=== PATIENT | male | born 1940 | race Caucasian/White ===

== ENCOUNTER 2017-02-08 16:41 | Emergency (ER) | payer OTHER, MEDICARE ==
[~2017-02-08] VITALS: Ht 157.4 cm; Wt 75.3 kg
[~2017-02-08 16:41] MED LIST: LISINOPRIL5 MG PO; METFOMIN HYDRO850 MG PO; PERCOCET 500 MG1 TAB PO; VITAMIN B1250 MCG PO
[2017-02-08 17:17] LABS: BASO % 0.6 % (0.0-1.0); EOS # 0.5 10*3/uL (0.0-0.4); EOS % 6.7 % (1.0-4.0); HEMATOCRIT 45.8 % (42.0-52.0); HEMOGLOBIN 16.1 g/dl (14.0-18.0); LYMPH # 2.1 10*3/uL (1.3-4.4); LYMPH % 31.1 % (27.0-41.0); MEAN CELL VOLUME 90.3 fl (80.0-94.0); MEAN CORPUSCULAR HGB 31.8 pg (27.0-31.0); MEAN CORPUSCULAR HGB CONC 35.2 g/dl (33.0-37.0); MEAN PLATELET VOLUME 10.8 fl (9.6-12.3); MONO # 0.6 10*3/uL (0.1-1.0); MONO % 9.2 % (3.0-9.0); NEUT # 3.6 10*3/uL (2.3-7.9); NEUT % 52.3 % (47.0-73.0); PLATELET COUNT AUTOMATED 203 10*3/uL (130-400); RED BLOOD COUNT 5.07 10*6/uL (4.50-5.90); RED CELL DISTRI WIDTH 12.6 % (0-14.5); WHITE BLOOD COUNT 6.9 10*3/uL (4.8-10.8)
[2017-02-08 17:26] LABS: PROTHROMBIN TIME 10.2 SECONDS (9.0-12.4)
[2017-02-08 17:34] LABS: ALBUMIN 4.2 gm/dl (3.1-4.5); ALKALINE PHOSPHATASE 69 U/L (45-117); BILIRUBIN, TOTAL 0.2 mg/dl (0.2-1.0); BUN 23 mg/dl (7-24); CARBON DIOXIDE 31 mmol/L (21-32); CHLORIDE 103 mmol/L (98-107); EST GLOM FILT AFRICAN AMERICAN > 60 ml/min; GLUCOSE 121 mg/dL (65-99); POTASSIUM 4.4 mmol/L (3.5-5.1); SGOT/AST 16 IU/L (3-35); SGPT/ALT 42 U/L (12-78); SODIUM 139 mmol/L (136-145); TOTAL PROTEIN 7.6 gm/dL (6.4-8.2)
[2017-02-08 17:37] LABS: TROPONIN I < 0.015 ng/ml (<0.045)
== END 2017-02-08 19:07 | disposition home or self-care (01) ==
LOC: ED 16:41
PROVIDERS: Registered Nurse
DX: R07.89 Other chest pain (principal); Z90.49 Acquired absence of other specified parts of digestive tract

== ENCOUNTER 2017-04-16 12:57 | Inpatient (IN) | payer OTHER, MEDICARE ==
[~2017-04-16] VITALS: Ht 157.4 cm; Wt 74.8 kg
[2017-04-16] VITALS (15 sets, daily range): BP systolic 151–200; BP diastolic 74–107
--- NOTE | ~2017-04-16 | PR ---
[place], [place] PROGRESS NOTE NAME: DAVE BUTT UNIT #: [id number] ROOM: 403 DOCTOR: JAMIE RIBEIRO MD BIRTHDATE: [birth year] DOS: REQUESTING PHYSICIAN: Dr. Weston. SUBJECTIVE: The patient presented with complaint of chest pain. Overnight did not have any significant recurrence of his chest complaints. He has been pain free. OBJECTIVE: VITAL SIGNS: Blood pressure 100/60, heart rate 80, presenting blood pressure 128/68, heart rate 74, respiratory rate of 14. HEENT: Extraocular muscles intact. Pupils equal, round and reactive to light. Conjunctivae, no pallor. Throat, no petechiae. NECK: Good upstroke. No bruit. HEART: S1, S2 with no rub. LUNGS: Clear to auscultation. LOWER EXTREMITIES: Mild ankle edema. ASSESSMENT AND PLAN: Chest pain, cardiac enzymes have been negative. The patient is scheduled today for Lexiscan stress test. Should the stress test be negative, the patient can be discharged home with followup with Dr. Moreland as an outpatient within 4-6 weeks. Any recurrence of chest pain, the patient was asked to come back immediately to the hospital or call 911. Cardiac risk modification will be deferred to Dr. Weston. Enteric-coated aspirin 81 mg is recommended. JAMIE RIBEIRO MD CM:PNTRANS [id number] JAMIE RIBEIRO MD 04/19/17 2013 interface
--- NOTE | ~2017-04-16 | ST ---
[place], [place] EXERCISE STRESS TEST REPORT [id number] UN[facility] #: [id number] ROOM: 403 DOCTOR: JAMIE RIBEIRO MD BIRTHDATE: [birth year] DOS: INDICATION: Chest pain. PROCEDURE: The patient was brought into the stress lab. The procedure was explained with risks, benefits and alternatives. Lexiscan was injected. The patient tolerated the injection well. ELECTROCARDIOGRAM INTERPRETATION: The resting electrocardiogram showed normal sinus rhythm, heart rate of 74, poor R-wave progression, mild nonspecific ST-T changes. During the infusion, there was no evidence of any significant ST or T-wave changes suggestive of myocardial ischemia. No arrhythmias were noted. BLOOD PRESSURE RESPONSE: Resting blood pressure 128/68 with ending blood pressure 102/58. SUMMARY: 1. Adequate Lexiscan stress test. 2. Negative Lexiscan stress test for stress-induced myocardial ischemia. 3. No arrhythmias were noted. 4. Nuclear images will be reported separately. JAMIE RIBEIRO MD CM:STRESS:EXERCISE STRESS TEST REPORT [id number] JAMIE RIBEIRO MD
[2017-04-16 13:29] LABS: PROTHROMBIN TIME 10.3 SECONDS (9.0-12.4)
[2017-04-16 13:32] LABS: BASO % 0.5 % (0.0-1.0); EOS # 0.5 10*3/uL (0.0-0.4); EOS % 6.3 % (1.0-4.0); HEMATOCRIT 44.4 % (42.0-52.0); HEMOGLOBIN 16.2 g/dl (14.0-18.0); LYMPH # 2.3 10*3/uL (1.3-4.4); LYMPH % 30.6 % (27.0-41.0); MEAN CELL VOLUME 88.4 fl (80.0-94.0); MEAN CORPUSCULAR HGB 32.3 pg (27.0-31.0); MEAN CORPUSCULAR HGB CONC 36.5 g/dl (33.0-37.0); MEAN PLATELET VOLUME 10.3 fl (9.6-12.3); MONO # 0.6 10*3/uL (0.1-1.0); MONO % 8.4 % (3.0-9.0); NEUT # 4.1 10*3/uL (2.3-7.9); NEUT % 54.1 % (47.0-73.0); PLATELET COUNT AUTOMATED 206 10*3/uL (130-400); RED BLOOD COUNT 5.02 10*6/uL (4.50-5.90); RED CELL DISTRI WIDTH 12.6 % (0-14.5); WHITE BLOOD COUNT 7.5 10*3/uL (4.8-10.8)
[2017-04-16 14:00] LABS: ALBUMIN 3.9 gm/dl (3.1-4.5); ALKALINE PHOSPHATASE 76 U/L (45-117); BILIRUBIN, TOTAL 0.4 mg/dl (0.2-1.0); BUN 17 mg/dl (7-24); CARBON DIOXIDE 25 mmol/L (21-32); CHLORIDE 101 mmol/L (98-107); EST GLOM FILT AFRICAN AMERICAN > 60 ml/min; GLUCOSE 172 mg/dL (65-99); MAGNESIUM 1.9 mg/dL (1.5-2.1); POTASSIUM 3.6 mmol/L (3.5-5.1); SGOT/AST 17 IU/L (3-35); SGPT/ALT 43 U/L (12-78); SODIUM 137 mmol/L (136-145); TOTAL PROTEIN 7.6 gm/dL (6.4-8.2); TROPONIN I < 0.015 ng/ml (<0.045)
[2017-04-17] VITALS: BP 182/88
[2017-04-17 05:58] VITALS: BP 172/86
[2017-04-17 06:39] LABS: BASO % 0.4 % (0.0-1.0); EOS # 0.3 10*3/uL (0.0-0.4); EOS % 3.4 % (1.0-4.0); HEMATOCRIT 42.2 % (42.0-52.0); IG # 0.1 10*3/uL (0.0-0.1); LYMPH # 1.4 10*3/uL (1.3-4.4); LYMPH % 14.2 % (27.0-41.0); MEAN CELL VOLUME 90.4 fl (80.0-94.0); MEAN CORPUSCULAR HGB 32.1 pg (27.0-31.0); MEAN CORPUSCULAR HGB CONC 35.5 g/dl (33.0-37.0); MEAN PLATELET VOLUME 10.7 fl (9.6-12.3); MONO # 0.9 10*3/uL (0.1-1.0); NEUT # 7.4 10*3/uL (2.3-7.9); NEUT % 72.5 % (47.0-73.0); PLATELET COUNT AUTOMATED 185 10*3/uL (130-400); RED BLOOD COUNT 4.67 10*6/uL (4.50-5.90); RED CELL DISTRI WIDTH 12.9 % (0-14.5); WHITE BLOOD COUNT 10.1 10*3/uL (4.8-10.8)
[2017-04-17 06:56] LABS: HEMOGLOBIN A1c 7.5 % (4.8-5.6)
[2017-04-17 07:14] LABS: BUN 15 mg/dl (7-24); CARBON DIOXIDE 25 mmol/L (21-32); CHLORIDE 104 mmol/L (98-107); CHOLESTEROL 135 mg/dL (<200); EST GLOM FILT AFRICAN AMERICAN > 60 ml/min; FREE T4 1.09 ng/dl (0.76-1.46); GLUCOSE 168 mg/dL (65-99); HDL CHOLESTEROL 45 mg/dl (40-60); LDL CHOLESTEROL 62 mg/dL (9-159); MAGNESIUM 1.8 mg/dL (1.5-2.1); POTASSIUM 4.2 mmol/L (3.5-5.1); SODIUM 139 mmol/L (136-145); TRIGLYCERIDES 138 mg/dl (<150); VLDL CHOLESTEROL 28 mg/dL (6-40)
[2017-04-17 08:01] VITALS: BP 143/69
[2017-04-17 12:00] VITALS: BP 158/72
[2017-04-17 16:00] VITALS: BP 151/74
[2017-04-17 20:00] VITALS: BP 154/78
[2017-04-18] VITALS: BP 137/79
[2017-04-18 06:09] LABS: BASO % 0.3 % (0.0-1.0); EOS # 0.5 10*3/uL (0.0-0.4); EOS % 4.5 % (1.0-4.0); HEMATOCRIT 41.8 % (42.0-52.0); HEMOGLOBIN 15.1 g/dl (14.0-18.0); LYMPH # 1.3 10*3/uL (1.3-4.4); LYMPH % 12.1 % (27.0-41.0); MEAN CELL VOLUME 89.7 fl (80.0-94.0); MEAN CORPUSCULAR HGB 32.4 pg (27.0-31.0); MEAN CORPUSCULAR HGB CONC 36.1 g/dl (33.0-37.0); MEAN PLATELET VOLUME 10.9 fl (9.6-12.3); MONO % 9.3 % (3.0-9.0); NEUT # 8.1 10*3/uL (2.3-7.9); NEUT % 73.6 % (47.0-73.0); PLATELET COUNT AUTOMATED 169 10*3/uL (130-400); RED BLOOD COUNT 4.66 10*6/uL (4.50-5.90); RED CELL DISTRI WIDTH 12.9 % (0-14.5)
[2017-04-18 06:40] LABS: BUN 12 mg/dl (7-24); CARBON DIOXIDE 25 mmol/L (21-32); CHLORIDE 104 mmol/L (98-107); EST GLOM FILT AFRICAN AMERICAN > 60 ml/min; GLUCOSE 187 mg/dL (65-99); POTASSIUM 3.7 mmol/L (3.5-5.1); SODIUM 141 mmol/L (136-145)
[2017-04-18 08:00] VITALS: BP 119/78
[2017-04-18 12:00] VITALS: BP 153/79
[2017-04-18 16:00] VITALS: BP 136/77
[2017-04-18 20:00] VITALS: BP 127/72; BP 148/75
[2017-04-19] VITALS: BP 129/77
[2017-04-19 06:13] LABS: BASO % 0.4 % (0.0-1.0); EOS # 0.6 10*3/uL (0.0-0.4); EOS % 6.5 % (1.0-4.0); HEMATOCRIT 41.1 % (42.0-52.0); HEMOGLOBIN 14.3 g/dl (14.0-18.0); LYMPH # 1.6 10*3/uL (1.3-4.4); LYMPH % 17.4 % (27.0-41.0); MEAN CELL VOLUME 91.5 fl (80.0-94.0); MEAN CORPUSCULAR HGB 31.8 pg (27.0-31.0); MEAN CORPUSCULAR HGB CONC 34.8 g/dl (33.0-37.0); MEAN PLATELET VOLUME 11.1 fl (9.6-12.3); MONO # 0.9 10*3/uL (0.1-1.0); MONO % 9.4 % (3.0-9.0); NEUT # 6.1 10*3/uL (2.3-7.9); NEUT % 65.9 % (47.0-73.0); PLATELET COUNT AUTOMATED 167 10*3/uL (130-400); RED BLOOD COUNT 4.49 10*6/uL (4.50-5.90); RED CELL DISTRI WIDTH 12.9 % (0-14.5); WHITE BLOOD COUNT 9.3 10*3/uL (4.8-10.8)
[2017-04-19 06:44] LABS: BUN 15 mg/dl (7-24); CARBON DIOXIDE 27 mmol/L (21-32); CHLORIDE 104 mmol/L (98-107); EST GLOM FILT AFRICAN AMERICAN > 60 ml/min; GLUCOSE 164 mg/dL (65-99); POTASSIUM 3.7 mmol/L (3.5-5.1); SODIUM 140 mmol/L (136-145)
[2017-04-19 08:00] VITALS: BP 107/70
[2017-04-19 12:00] VITALS: BP 128/72
[2017-04-19] MEDS ORDERED: LISINOPRIL20 MG PO (13:16)
[2017-04-19] MEDS ORDERED: VITAMIN D1000 IU PO (13:16)
== END 2017-04-19 14:34 | disposition home or self-care (01) | DRG 391 ==
LOC: ED 12:57 → 4E 16:25 → EDHOLD 16:25 → 4E 16:32
PROVIDERS: Emergency Medicine; Family Medicine; Student in an Organized Health Care Education/Training Program
PROC: 4A02XM4 Measurement of Cardiac Total Activity, External Approach (ICD-10-PCS; principal; 2017-04-16)
DX: K21.9 Gastro-esophageal reflux disease without esophagitis (principal); J18.9 Pneumonia, unspecified organism; E11.65 Type 2 diabetes mellitus with hyperglycemia; R00.1 Bradycardia, unspecified; I16.1 Hypertensive emergency; F41.9 Anxiety disorder, unspecified; I10 Essential (primary) hypertension; F32.9 Major depressive disorder, single episode, unspecified; K80.20 Calculus of gallbladder without cholecystitis without obstruction; K57.90 Diverticulosis of intestine, part unspecified, without perforation or abscess without bleeding; E78.5 Hyperlipidemia, unspecified; R07.89 Other chest pain; I16.0 Hypertensive urgency; Z82.3 Family history of stroke; Z79.84 Long term (current) use of oral hypoglycemic drugs; Z79.899 Other long term (current) drug therapy; Z90.49 Acquired absence of other specified parts of digestive tract; Z82.49 Family history of ischemic heart disease and other diseases of the circulatory system

== ENCOUNTER 2017-10-20 10:10 | Inpatient (IN) | payer OTHER ==
[~2017-10-20] VITALS: Ht 157.4 cm; Wt 74.8 kg
[~2017-10-20 10:10] MED LIST changes: +LISINOPRIL20 MG PO; +VITAMIN D1000 IU PO
[2017-10-20 10:21] VITALS: BP 170/87
[2017-10-20 10:22] LABS: BASO % 0.6 % (0.0-1.0); EOS # 0.7 10*3/uL (0.0-0.4); EOS % 10.4 % (1.0-4.0); HEMATOCRIT 46.2 % (42.0-52.0); HEMOGLOBIN 16.4 g/dl (14.0-18.0); LYMPH # 1.3 10*3/uL (1.3-4.4); LYMPH % 20.5 % (27.0-41.0); MEAN CELL VOLUME 89.9 fl (80.0-94.0); MEAN CORPUSCULAR HGB 31.9 pg (27.0-31.0); MEAN CORPUSCULAR HGB CONC 35.5 g/dl (33.0-37.0); MEAN PLATELET VOLUME 10.4 fl (9.6-12.3); MONO # 0.5 10*3/uL (0.1-1.0); MONO % 7.8 % (3.0-9.0); NEUT # 3.8 10*3/uL (2.3-7.9); NEUT % 60.5 % (47.0-73.0); PLATELET COUNT AUTOMATED 185 10*3/uL (130-400); RED BLOOD COUNT 5.14 10*6/uL (4.50-5.90); WHITE BLOOD COUNT 6.3 10*3/uL (4.8-10.8)
--- NOTE | 2017-10-20 10:25 | NUR ---
NURSE IS UNAWARE OF THIS ADMISSION. PER [employer] THEY WILL CALL BACK FOR REPORT.
--- NOTE | 2017-10-20 10:29 | NUR ---
PHARMACY SENDING NITRO PAPER TO ER
[2017-10-20] MEDS ORDERED: GLIPIZIDE5 MG PO (10:32)
[2017-10-20 10:33] VITALS: BP 152/86
[2017-10-20 10:37] LABS: ACT PARTIAL THROMBO TIME 24.1 SECONDS (20.8-31.5)
[2017-10-20 10:40] LABS: ALKALINE PHOSPHATASE 82 U/L (45-117); BUN 18 mg/dl (7-24); CHLORIDE 104 mmol/L (98-107); CREATININE 0.76 mg/dL (0.70-1.30); SGOT/AST 15 IU/L (3-35); SGPT/ALT 41 U/L (12-78); SODIUM 137 mmol/L (136-145); TOTAL PROTEIN 7.5 gm/dL (6.4-8.2)
[2017-10-20 10:43] LABS: TROPONIN I < 0.015 ng/ml (<0.045)
[2017-10-20 10:50] VITALS: BP 182/83
--- NOTE | 2017-10-20 11:00 | NUR ---
A 77, admitted to 4E, under the services of MARANDA Brown DO with a diagnosis of CHEST PAIN. Chief complaint is CHEST PAIN. Patient arrived via stretcher from ER. Monitor applied. Initial assessment completed. Vital signs taken and recorded. ANN EMANUEL notified of admission to the unit. See assessment for past medical history, medications and allergies. Patient and/or family oriented to unit. [facility] visitation policy reviewed. Clothing/patient valuable form completed. MIGUEL GILBERT
--- NOTE | 2017-10-20 11:43 | NUR ---
[facility]ED [facility] TO [facility] LIST. THEY ARE AMAYA GTO FAX HIS LIST OVER TO US. AWAITING THAT TO UPDATE PATIENT MEDICAION
[2017-10-20 12:00] VITALS: BP 180/80
--- NOTE | 2017-10-20 12:06 | NUR ---
DR. VALERIA PEPPER NOTIFIED OF NEW CONSULT TO DR. ALVARADO. THEY ARE ON THE FLOOR AND WILL SEE PATIENT
[2017-10-20] MEDS ORDERED: COZAAR25 M1 PO (14:21)
[2017-10-20] MEDS ORDERED: VOLTAREN100 GM T (14:22)
[2017-10-20] MEDS ORDERED: ATARAX,VISTARIL10 MG PO (14:24)
[2017-10-20] MEDS ORDERED: EMSAM TD (14:24)
[2017-10-20] MEDS ORDERED: MULTIVITAMINS1 EAC5 PO (14:25)
--- NOTE | 2017-10-20 14:25 | NUR ---
MEDICATIONS UPDATED FROM [place]. ANN EMANUEL NOTIFIED THAT MEDICATIONS WERE UPDATED. AWAITING ORDERS
[2017-10-20 16:00] VITALS: BP 143/73
[2017-10-20 20:00] VITALS: BP 145/69
[2017-10-21] VITALS: BP 114/79
[2017-10-21 06:11] LABS: BASO # 0.1 10*3/uL (0.0-0.1); BASO % 0.9 % (0.0-1.0); EOS # 0.8 10*3/uL (0.0-0.4); EOS % 11.8 % (1.0-4.0); HEMATOCRIT 46.2 % (42.0-52.0); HEMOGLOBIN 16.5 g/dl (14.0-18.0); LYMPH % 29.5 % (27.0-41.0); MEAN CELL VOLUME 91.3 fl (80.0-94.0); MEAN CORPUSCULAR HGB 32.6 pg (27.0-31.0); MEAN CORPUSCULAR HGB CONC 35.7 g/dl (33.0-37.0); MEAN PLATELET VOLUME 10.8 fl (9.6-12.3); MONO # 0.6 10*3/uL (0.1-1.0); NEUT # 3.4 10*3/uL (2.3-7.9); NEUT % 49.7 % (47.0-73.0); PLATELET COUNT AUTOMATED 195 10*3/uL (130-400); RED BLOOD COUNT 5.06 10*6/uL (4.50-5.90); WHITE BLOOD COUNT 6.9 10*3/uL (4.8-10.8)
[2017-10-21 06:30] LABS: ALBUMIN 3.8 gm/dl (3.1-4.5); ALKALINE PHOSPHATASE 79 U/L (45-117); BUN 17 mg/dl (7-24); CHLORIDE 101 mmol/L (98-107); CHOLESTEROL 141 mg/dL (<200); CREATININE 0.85 mg/dL (0.70-1.30); HDL CHOLESTEROL 46 mg/dl (40-60); LDL CHOLESTEROL 69 mg/dL (9-159); PHOSPHOROUS 3.3 mg/dL (2.5-4.9); POTASSIUM 4.1 mmol/L (3.5-5.1); SGOT/AST 21 IU/L (3-35); SGPT/ALT 38 U/L (12-78); SODIUM 136 mmol/L (136-145); TOTAL PROTEIN 7.5 gm/dL (6.4-8.2); TRIGLYCERIDES 128 mg/dl (<150); VLDL CHOLESTEROL 26 mg/dL (6-40)
[2017-10-21 06:38] LABS: CPK 45 U/L (39-308); FREE T4 1.06 ng/dl (0.76-1.46); THYROID STIM HORMONE (HS) 0.975 uIU/ml (0.358-4.75)
[2017-10-21 08:00] VITALS: BP 135/77
[2017-10-21 08:21] LABS: VITAMIN D, 25-HYDROXY 17.4 ng/mL (30-100)
--- NOTE | 2017-10-21 08:30 | NUR ---
[employer] Engineer in to talk to patient. Patient states lives at HOME with HIS . There are OVER 50 STEPS steps in the home. Physician: MARGUERITE Pharmacy: [place] Home health services: NONE Patient's level of ADLs: INDEPENDENT Patient has working utilities: YES DME: NONE Follow-up physician's appointment after d/c: WILL BE MADE PRIOR TO DC Does patient want to access PORTAL?: Discharge plan HOME. SKYLER ARANGO PT WANTS [facility] B[facility]ISIT. INCLUDING THE DOCTORS. ADDRESS EMAILED TO [facility]. [facility] [place] NOTIFIED.
--- NOTE | 2017-10-21 10:36 | NUR ---
REC'D CALL FROM JAYDA AT [facility] PAY HIS BILL AND ASKS THAT I CALL HER WITH HIS DC.
[2017-10-21 12:00] VITALS: BP 141/81
--- NOTE | 2017-10-21 14:53 | NUR ---
CALLED DR MARTINEZ ABOUT PATIENTS CONCERN OF NOT SEEING THE DOCTOR TODAY, HE SAID HE WAS GOING TO TALK TO CARDIOLOGY ABOUT POSSIBLE DISCHARGE.
[2017-10-21] MEDS ORDERED: HYDR12.5C PO (15:39)
[2017-10-21] MEDS ORDERED: VITAMIN D5000 UNI1 PO (15:39)
--- NOTE | 2017-10-21 16:07 | NUR ---
Discharge instructions reviewed with patient/family. Patient receptive and verbalizes understanding. Follow-up care arranged. Written instructions given to patient/family. QIANA DIAZ
== END 2017-10-21 16:07 | disposition home or self-care (01) | DRG 206 ==
LOC: ED 10:10 → EDHOLD 10:17 → 4E 10:17
PROVIDERS: Emergency Medicine; Internal Medicine; Registered Nurse; ADMIT Internal Medicine
DX: M94.0 Chondrocostal junction syndrome [Tietze] (principal); E11.9 Type 2 diabetes mellitus without complications; I10 Essential (primary) hypertension; E55.9 Vitamin D deficiency, unspecified; F32.9 Major depressive disorder, single episode, unspecified; E78.00 Pure hypercholesterolemia, unspecified; F41.9 Anxiety disorder, unspecified; Z82.49 Family history of ischemic heart disease and other diseases of the circulatory system; Z87.01 Personal history of pneumonia (recurrent); Z88.6 Allergy status to analgesic agent; Z88.8 Allergy status to other drugs, medicaments and biological substances; Z79.899 Other long term (current) drug therapy; Z90.49 Acquired absence of other specified parts of digestive tract; Z90.89 Acquired absence of other organs; Z87.891 Personal history of nicotine dependence; Z82.3 Family history of stroke; Z81.1 Family history of alcohol abuse and dependence

== ENCOUNTER → 2020-12-25 | Outpatient (CLI) | payer OTHER ==
[~2020-12-25] MED LIST changes: +ATARAX,VISTARIL10 MG PO; +COZAAR25 M1 PO; +EMSAM TD; +GLIPIZIDE5 MG PO; +HYDR12.5C PO; +MULTIVITAMINS1 EAC5 PO; +VITAMIN D5000 UNI1 PO; +VOLTAREN100 GM T
== END | disposition home or self-care (01) ==
LOC: CARD 10:23
PROVIDERS: ATTEND Nurse Practitioner Family
DX: J43.8 Other emphysema (principal); K76.0 Fatty (change of) liver, not elsewhere classified; I07.1 Rheumatic tricuspid insufficiency; R01.1 Cardiac murmur, unspecified; Z72.0 Tobacco use

== ENCOUNTER 2021-09-08 17:05 | Emergency (ER) | payer OTHER ==
[~2021-09-08] VITALS: Ht 157.4 cm; Wt 68.0 kg
[2021-09-08 17:31] LABS: BASO % 0.4 % (0.0-1.0); EOS # 0.6 10*3/uL (0.0-0.4); EOS % 8.5 % (1.0-4.0); HEMATOCRIT 45.6 % (42.0-52.0); LYMPH # 1.5 10*3/uL (1.3-4.4); LYMPH % 21.5 % (27.0-41.0); MEAN CELL VOLUME 92.7 fl (80.0-94.0); MEAN CORPUSCULAR HGB 32.5 pg (27.0-31.0); MEAN CORPUSCULAR HGB CONC 35.1 g/dl (33.0-37.0); MEAN PLATELET VOLUME 10.5 fl (9.6-12.3); MONO # 0.6 10*3/uL (0.1-1.0); MONO % 8.6 % (3.0-9.0); NEUT # 4.2 10*3/uL (2.3-7.9); NEUT % 60.9 % (47.0-73.0); PLATELET COUNT AUTOMATED 191 10*3/uL (130-400); RED BLOOD COUNT 4.92 10*6/uL (4.50-5.90); RED CELL DISTRI WIDTH 13.2 % (0-14.5)
[2021-09-08 17:47] LABS: ALBUMIN 3.4 gm/dl (3.1-4.5); ALKALINE PHOSPHATASE 93 U/L (45-117); BUN 18 mg/dl (7-24); CHLORIDE 108 mmol/L (98-107); POTASSIUM 3.9 mmol/L (3.5-5.1); SGOT/AST 54 IU/L (3-35); SGPT/ALT 55 U/L (12-78); SODIUM 136 mmol/L (136-145); TOTAL PROTEIN 7.1 gm/dL (6.4-8.2)
[2021-09-08 17:53] LABS: ACT PARTIAL THROMBO TIME 25.3 SECONDS (20.0-32.1); TROPONIN I < 0.015 ng/ml (<0.045)
== END 2021-09-08 19:15 | disposition admitted as inpatient to this hospital (09) ==
LOC: ED 17:05 → EDHOLD 19:06 → ED 19:15
PROVIDERS: Emergency Medicine
DX: R07.89 Other chest pain (principal); Z88.0 Allergy status to penicillin; Z88.8 Allergy status to other drugs, medicaments and biological substances; Z79.899 Other long term (current) drug therapy; Z87.891 Personal history of nicotine dependence